=== PATIENT | male | born 1975 | race Caucasian/White ===

== ENCOUNTER 2017-03-26 16:21 | Emergency (ER) | payer OTHER ==
[2017-03-26 18:05] VITALS: BP 127/81
--- NOTE | 2017-03-26 18:28 | EDPHY ---
H & P Time Seen by Provider: 03/26/17 17:51 HPI/ROS: CHIEF COMPLAINT: Back pain HISTORY OF PRESENT ILLNESS: 41-year-old male presents to the emergency department with back pain. The patient states over last 2 weeks he has had intermittent low back discomfort. He felt that his back was tightening up over last few days. He has been lying in bed for last few days because of pain. He has pain especially with range of motion. He has missed work. Denies radiation of pain. Denies foot drop. Denies numbness or tingling in his upper lower extremities. Denies bowel or bladder incontinence. No reported trauma. He has been taking Flexeril and Tylenol for pain. Patient also states he tried lidocaine patches. REVIEW OF SYSTEMS: Constitutional: No fever, no chills. Eyes: No double or blurry vision. ENT: No sore throat. Respiratory: No cough, no shortness of breath. Cardiac: No chest pain. Gastrointestinal: No abdominal pain, vomiting or diarrhea. Genitourinary: No dysuria. Musculoskeletal: Back pain as above. No neck pain. Skin: No rashes. Neurological: No headache. Past Medical/Surgical History: Appendectomy Social History: dealer sales manager Smoking Status: Never smoked Physical Exam: General Appearance: Alert, no distress. Eyes: Pupils equal and round. Extraocular motions are all intact. ENT: Mouth: Mucous membranes moist. Respiratory: No wheezing, rhonchi, or rales, lungs are clear to auscultation. Cardiovascular: Regular rate and rhythm. Gastrointestinal: Abdomen is soft and nontender, no masses, no rebound or guarding, bowel sounds normal. Neurological: Alert and oriented x 3, cranial nerves II through XII grossly intact Skin: Warm and dry, no rashes. Musculoskeletal: Nontender to palpate along the cervical, thoracic or lumbar spine. Neck is supple. Extremities: Full range of motion and no peripheral edema. Straight leg raise is negative bilaterally. Reflexes are 2+ and equal for lower extremities bilaterally. Normal and equal strength lower extremities bilaterally. Normal gait. Normal heel-toe walking. Laterally bending and twisting to the left and right also causes pain in his back. Psychiatric: Patient is oriented X 3, there is no agitation. Constitutional: Initial Vital Signs Temperature (C) 36.7 C 03/26/17 16:29 Heart Rate 122 H 03/26/17 16:29 Respiratory Rate 20 03/26/17 16:29 Blood Pressure 126/79 H 03/26/17 16:29 O2 Sat (%) 98 03/26/17 16:29 O2 Delivery Mode Room Air Allergies/Adverse Reactions: cephalexin [From Keflex] Allergy (Verified 03/26/17 16:26) NSAIDS (Non-Steroidal Anti-Inflamma Allergy (Verified 03/26/17 16:26) penicillin G Allergy (Verified 03/26/17 16:26) Home Medications: Medication Instructions Recorded Angela Allergy 03/26/17 Flexeril 10 MG (*) 03/26/17 methylPREDNISolone [Medrol Dose 1 each PO AD #0 ea 03/26/17 Joseph] Medical Decision Making ED Course/Re-evaluation: 41-year-old male presents to the emergency department with low back pain. Patient has an otherwise normal neurologic examination. I do not think imaging studies are indicated. There is no reported trauma. Patient has already been taking Tylenol and Flexeril. He states that he has already tried lidocaine patches. I explained to the patient that narcotic medication would not be dispensed. He seemed okay with this. The patient will be given a prescription for Medrol Dosepak. He was also given a note for work and referral to neurosurgeon if symptoms do not improve. Differential Diagnosis: Back pain including but not limited to muscular pain, herniated disc, spine fracture, intra-abdominal causes and urinary tract infection. Departure - Departure Disposition: Home, Routine, Self-Care Clinical Impression: Low back pain Qualifiers: Chronicity: acute Back pain laterality: right Sciatica presence: without sciatica Qualified Code(s): M54.5 - Low back pain Instructions: Low Back Strain (ED), Back Pain (ED) Additional Instructions: Medrol Dosepak as directed for 1 week. Continue Tylenol, Flexeril and lidocaine patches as discussed. Follow up with her primary care provider next week. Follow up with Neurosurgery if symptoms do not improve. Return to the emergency department sooner if you developed footdrop, increasing pain, bowel or bladder incontinence, or if you feel worse in any way. Referrals: Valarie Welsh DO [Primary Care Provider] - As per Instructions Mahamed Pastrana MD [Medical Doctor] - As per Instructions (Neurosurgeon on-call) Stand Alone Forms: Work Excuse Prescriptions: methylPREDNISolone [Medrol Dose Joseph] 1 each PO AD #0 ea
[2017-03-26 18:47] VITALS: PULSE 92; RESP 14; TEMP 97.2; O2SAT 94
== END 2017-03-26 18:47 | disposition home or self-care (01) ==
DX: M54.5 Low back pain (principal)